=== PATIENT | male | born 1985 ===

== ENCOUNTER 2016-11-15 13:18 | Emergency (ER) | payer MEDICAID ==
[2016-11-15 13:26] VITALS: TEMP 98.6
--- NOTE | 2016-11-15 14:05 | C.PDOC ---
History Of Present Illness 31 yr old male presents to the ER with right ankle/foot pain since morning. Patient is unaware of any known injury, states the pain is to the top right side of right foot, worse with weight bearing and reports of mild swelling to the area. Patient states he walks a lot of work. Reports he took a Motrin at 1230. Patient denies leg pain, back pain, weakness or numbness. R ANKLE/FOOT PAIN SINCE THIS MORNING. NO KNOWN INJURY. TOP R SIDE OF R FOOT. WORSE W WT BEAR. MILD SWELLING TO AREA. PS WALKS ALOT FOR WORK. SP MOTRIN @ 1230 EXAM NAD EXT R FOOT MILD SWELL W TEND BELOW R LAT MALL LOCAL TEND. NO DEFORM, ATRAUM, BRUISING. SKIN INTACT NO ERYTHEMA MDM FOOT STRAIN. OFFERED AIR CAST. NSAIDS, ICE, REST Time Seen by Provider: 11/15/16 13:48 Chief Complaint (Nursing): Lower Extremity Problem/Injury History/Exam Limitations: no limitations Onset/Duration Of Symptoms: Sudden Onset (Since morning ) Past Medical History Reviewed: Historical Data, Nursing Documentation, Vital Signs Vital Signs: Last Vital Signs Temp 98.6 F 11/15/16 13:23 Pulse 67 11/15/16 13:23 Resp 16 11/15/16 13:23 BP 104/68 11/15/16 13:23 Pulse Ox 95 11/15/16 14:06 Family History: States: No Known Family Hx - Social History Hx Alcohol Use: No Hx Substance Use: No Review Of Systems Except As Marked, All Systems Reviewed And Found Negative. Musculoskeletal: Positive for: Foot Pain (Right foot/Ankle pain ). Negative for : Back Pain, Leg Pain Neurological: Negative for: Weakness, Numbness Physical Exam - Physical Exam Appears: Well, Non-toxic, No Acute Distress Skin: Warm, Dry, No Rash, No Ecchymosis Head: Atraumatic, Normacephalic Extremity: No Calf Tenderness, No Deformity, Other (Right Foot - Mild swelling with tenderness below deepika right lateral malleolus. Local tendernes. ) Neurological/Psych: Oriented x3, Normal Speech, Normal Motor ED Course And Treatment O2 Sat by Pulse Oximetry: 95 Medical Decision Making Medical Decision Making: NOTE: Diagnosed with Foot Sprain. Offered air cast. Instructed to use NSAIDS, ice the area and to rest. Disposition Counseled Patient/Family Regarding: Diagnosis, Need For Followup - Disposition Referrals: [facility] [Outside] [facility] [Outside] [facility] [Outside] Disposition: HOME/ ROUTINE Disposition Time: 14:06 Condition: GOOD Instructions: Foot Sprain (ED) Forms: Work Excuse - Clinical Impression Clinical Impression: Strain of foot - Scribe Statement The provider has reviewed the documentation as recorded by the Harpalibe Payton Timmons Provider Attestation: All medical record entries made by the Jaiden were at my direction and personally dictated by me. I have reviewed the chart and agree that the record accurately reflects my personal performance of the history, physical exam, medical decision making, and the department course for this patient. I have also personally directed, reviewed, and agree with the discharge instructions and disposition. Orthopedic Care Application Of:: Ankle Air Cast
[2016-11-15 14:57] VITALS: BP 120/72; PULSE 75; RESP 18; O2SAT 98
== END 2016-11-15 14:40 | disposition home or self-care (01) ==
LOC: C.ER 13:18
DX: S96.911A Strain of unspecified muscle and tendon at ankle and foot level, right foot, initial encounter (principal); X58.XXXA Exposure to other specified factors, initial encounter; Y92.89 Other specified places as the place of occurrence of the external cause

== ENCOUNTER 2018-06-04 11:31 | Emergency (ER) | payer MEDICAID, OTHER ==
[2018-06-04 11:41] VITALS: BP 113/73; PULSE 69; RESP 17; TEMP 98.3; O2SAT 100
--- NOTE | 2018-06-04 13:38 | C.PDOC ---
History Of Present Illness 33 y/o male presents to the ER complaining of left shoulder pain which has been present for the past 3 weeks. Patient states that he does heavy lifting, he lifts boxes at work. Patient reports that he did not take any medications for the pain. Denies having direct trauma, CP, SOB, weakness and numbness to left arm. Time Seen by Provider: 06/04/18 11:40 Chief Complaint (Nursing): Upper Extremity Problem/Injury History Per: Patient History/Exam Limitations: no limitations Onset/Duration Of Symptoms: Days Current Symptoms Are (Timing): Still Present Severity: Moderate Past Medical History Reviewed: Historical Data, Nursing Documentation, Vital Signs Vital Signs: Last Vital Signs Temp 98.3 F 06/04/18 11:33 Pulse 69 06/04/18 11:33 Resp 17 06/04/18 11:33 BP 113/73 06/04/18 11:33 Pulse Ox 100 06/04/18 11:33 - Medical History PMH: No Chronic Diseases Surgical History: No Surg Hx Family History: States: No Known Family Hx - Social History Hx Alcohol Use: No Hx Substance Use: No - Immunization History Hx Tetanus Toxoid Vaccination: No Hx Influenza Vaccination: Yes Hx Pneumococcal Vaccination: No Review Of Systems Except As Marked, All Systems Reviewed And Found Negative. Cardiovascular: Negative for: Chest Pain Respiratory: Negative for: Shortness of Breath Musculoskeletal: Positive for: Shoulder Pain (left shoulder pain) Neurological: Negative for: Weakness, Numbness Physical Exam - Physical Exam Appears: Non-toxic, No Acute Distress Skin: Normal Color, Warm, Dry Head: Atraumatic, Normacephalic Eye(s): bilateral: Normal Inspection Nose: Normal Oral Mucosa: Moist Neck: Supple Chest: Symmetrical Cardiovascular: Rhythm Regular Respiratory: Normal Breath Sounds, No Rales, No Rhonchi, No Wheezing Extremity: Normal ROM (full ROM in left shoulder), Tenderness (tenderness to medial aspect of left shoulder) Neurological/Psych: Oriented x3, Normal Speech ED Course And Treatment O2 Sat by Pulse Oximetry: 100 (RA) Pulse Ox Interpretation: Normal Medical Decision Making Medical Decision Making: Patient has been discharged with prescription for Motrin and Cyclobenzaprine. Patient has been instructed to follow up with PMD in 2-3 days. Disposition - Disposition Referrals: [facility], [Non-Staff] - Disposition: HOME/ ROUTINE Disposition Time: 11:55 Condition: GOOD Additional Instructions: ABDIRIZAK ARCOS, thank you for letting us take care of you today. The emergency medical care you received today was directed at your acute symptoms. If you were prescribed any medication, please fill it and take as directed. It may take several days for your symptoms to resolve. Return to the Emergency Department if your symptoms worsen, do not improve, or if you have any other problems. Please contact your doctor or call one of the physicians/clinics you have been referred to that are listed on the Patient Visit Information form that is included in your discharge packet. Bring any paperwork you were given at discharge with you along with any medications you are taking to your follow up visit. Our treatment cannot replace ongoing medical care by a primary care provider outside of the emergency department. Thank you for allowing the [id number] team to be part of your care today. Follow up with your primary care doctor in 3-5 days for re-evaluation and further management. Prescriptions: Cyclobenzaprine [Cyclobenzaprine HCl] 10 mg PO Q8 PRN #20 tab PRN Reason: Muscle Spasm Ibuprofen [Motrin] 600 mg PO Q6 PRN #20 tab PRN Reason: Pain, Moderate (4-7) Instructions: Shoulder Sprain (DC) Forms: [employer] ([employer]), Work Excuse - Clinical Impression Clinical Impression: Shoulder sprain - Scribe Statement The provider has reviewed the documentation as recorded by the Jaiden Murcia Provider Attestation: All medical record entries made by the Harpalibe were at my direction and personally dictated by me. I have reviewed the chart and agree that the record accurately reflects my personal performance of the history, physical exam, medical decision making, and the department course for this patient. I have also personally directed, reviewed, and agree with the discharge instructions and disposition.
== END 2018-06-04 12:04 | disposition home or self-care (01) ==
LOC: C.ER 11:31
DX: S43.402A Unspecified sprain of left shoulder joint, initial encounter (principal); X58.XXXA Exposure to other specified factors, initial encounter